=== PATIENT | male | born 1945 | race Caucasian/White ===

== ENCOUNTER 2019-05-07 09:03 | Day surgery (SDC) | payer MEDICARE, BC ==
[2019-05-04 12:00] VITALS: BMI 34.9
[~2019-05-07 09:03] MED LIST: LACTATED RINGERS 1,000 ML IV SCH; LIDOCAINE 1% 20 ML VIAL (10MG/ML) FOR IV START INTRADERMA PRN
[2019-05-07 10:06] VITALS: RESP 18
[2019-05-07 10:11] VITALS: TEMP 97.5
[2019-05-07] MEDS ORDERED: PROPOFOL 10 MG/ML 20 ML VIAL IV ONE (11:47)
[2019-05-07] MEDS ORDERED: SODIUM CHLORIDE 0.9% 500 ML 500 ML IV ONE (12:08)
--- NOTE | 2019-05-07 12:14 | P.PCN ---
Date of Procedure: 05/07/19 Procedure(s) Performed: Procedure: Total colonoscopy. Preoperative diagnosis: Screening for neoplasia. Postoperative diagnosis: Mild diverticulosis with no evidence of acute diverticulitis, strictures, polyps or cancer. Preparation: HalfLytely prep. Sedation: Was provided by anesthesia. Brief clinical history: The patient is a 74-year-old male who is scheduled for this evaluation for screening for neoplasia. His prior exam was more than 10 years ago. The patient has no abdominal complaints, bleeding or anemia. Procedure: With the patient on his left lateral decubitus position and after informed consent and adequate sedation, the perianal area was inspected and it did not show any fissures or fistulas. There were no masses felt on digital rectal examination. The Olympus CFH 190L video colonoscope was then inserted in the rectum in the usual fashion and advanced to the cecum. There were occasional diverticular orifices seen scattered in the sigmoid and on the right side with no evidence of acute diverticulitis or strictures. The mucosa appeared healthy. No polyps or tumors were seen. I retroflexed the endoscope in the rectum before the endoscope was withdrawn. The patient tolerated the procedure well Plan: The patient was reassured. Discussed dietary measures. At his age, I did not recommend repeat exam in 10 years. He will discuss that with you.
[2019-05-07 12:45] VITALS: BP 146/84; PULSE 60
== END 2019-05-07 13:07 | disposition home or self-care (01) ==
LOC: ORWHC2ENDO 09:03
DX: Z12.11 Encounter for screening for malignant neoplasm of colon (principal); K57.30 Diverticulosis of large intestine without perforation or abscess without bleeding; K21.9 Gastro-esophageal reflux disease without esophagitis; I10 Essential (primary) hypertension; E07.9 Disorder of thyroid, unspecified; Z79.890 Hormone replacement therapy; Z79.899 Other long term (current) drug therapy
CPT/HCPCS: G0121; J2704

== ENCOUNTER → 2021-06-08 | Outpatient (CLI) | payer MEDICARE, BC ==
--- NOTE | 2021-06-08 12:14 | XR ---
EXAMINATION TYPE: XR shoulder complete BILAT DATE OF EXAM: 06/08/2021 COMPARISON: NONE HISTORY: Pain TECHNIQUE: Three views are submitted. FINDINGS: The osseous structures are intact. There is no acute fracture or dislocation. There is hypertrophic change of the AC joints bilaterally. Spurring is seen bilaterally. Narrowing of the joint. No acute f racture or dislocation. Visualized lung castillo clear. IMPRESSION: 1. Significant AC joint hypertrophic arthropathy correlate for rotator cuff impingement.
== END | disposition home or self-care (01) ==
LOC: RAD 10:43
PROVIDERS: ATTEND Internal Medicine
DX: M19.011 Primary osteoarthritis, right shoulder (principal); M19.012 Primary osteoarthritis, left shoulder

== ENCOUNTER → 2023-11-04 | Outpatient (CLI) | payer MEDICARE, BC ==
[2023-11-04 11:13] LABS: African American GFR (CKD) 87 (>60 ml/min/1.73 sqM); Blood Urea Nitrogen 20 mg/dL (9-20); Non-African American GFR(CKD) 75 (>60 ml/min/1.73 sqM)
--- NOTE | 2023-11-04 14:26 | CT ---
EXAMINATION TYPE: CT brain wo/w con CT DLP: 2075.8 mGycm, Automated exposure control for dose reduction was used. DATE OF EXAM: 11/04/2023 11:50 AM COMPARISON: None. 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 Contrast used:100 mL of Isovue 300 with IV Contrast, Oral contrast used: none. FINDINGS: Extra-axial spaces: No abnormal extra-axial fluid collections. Ventricular system: Dilatation in proportion to cerebral atrophy. Cerebral parenchyma: Cerebral atrophy. No acute intraparenchymal hemorrhage or mass effect. The urban [place] of the wilkinson-white junctions are well differentiated. Scattered hypoattenuating areas are seen w ithin the white matter. No abnormal enhancement is seen after the administration of intravenous contr ast. Cerebellum: Unremarkable. Mass effect: No evidence of midline shift. Intracranial vasculature: Atherosclerotic calcifications of the intracranial vessels. Soft tissues: Normal. Calvarium/osseous structures: No depressed skull fracture. Paranasal sinuses and mastoid air cells: Mild paranasal sinus disease. Visualized orbits: Bilaterally aphakia. IMPRESSION: 1. No acute intracranial process or significant change from prior. 2. No abnormal postcontrast enhancement on delayed imaging.
== END | disposition home or self-care (01) ==
LOC: RADCTMAIN 10:38
PROVIDERS: ATTEND Ophthalmology
DX: H53.462 Homonymous bilateral field defects, left side (principal)
CPT/HCPCS: 82565; 84520; 70470; 36415; Q9967